=== PATIENT | male | born 1970 | race Caucasian/White ===

== ENCOUNTER → 2018-05-23 | Outpatient (CLI) | payer BC ==
[~2018-05-23] MED LIST: CEPH500 PO; CHOL10002 PO; COMPLERA TABLE1 EACH PO; HYDCOR10 PO; L-LYSINE500 MG PO; LAMZIDT; PRED20 PO; Percocet 5-3251 EACH PO; RITLOP; RXSULTRIDS PO; SOME ANTIBIODIC; SULTRIDS PO; TESTONE CI200 MG/1 M IM; Vitron-C Table1 EACH PO
== END | disposition home or self-care (01) ==
LOC: PLD 12:55 → LAB SHORT 12:55
DX: L08.9 Local infection of the skin and subcutaneous tissue, unspecified (principal)
CPT/HCPCS: 87070; 87077; 87147; 87186; 87205

== ENCOUNTER 2018-11-19 12:49 | Observation (INO) | payer BC, OTHER ==
[~2018-11-19] VITALS: Ht 180.3 cm; Wt 80.7 kg
[2018-11-19 13:23] LABS: BASOPHILS ABSOLUTE AUTO 0.01 K/mm3 (0.00-0.23); BASOPHILS PERCENT AUTO 0 % (0-2); EOSINOPHILS ABSOLUTE AUTO 0.05 K/mm3 (0.00-0.68); EOSINOPHILS PERCENT AUTO 1 % (0-6); Hematocrit 42.6 % (37.0-53.0); Hemoglobin 14.4 g/dL (13.5-17.5); IMMATURE GRAN ABSOLUTE AUTO 0.05 K/mm3 (0.00-0.10); IMMATURE GRAN PERCENT AUTO 1 % (0-1); LYMPHOCYTES ABSOLUTE AUTO 2.62 K/mm3 (0.84-5.20); LYMPHOCYTES PERCENT AUTO 27 % (21-46); MONOCYTES ABSOLUTE AUTO 0.92 K/mm3 (0.16-1.47); MONOCYTES PERCENT AUTO 10 % (4-13); Mean Corpuscular HGB 30.1 pg (26.0-34.0); Mean Corpuscular HGB Conc 33.8 g/dL (31.5-36.5); Mean Corpuscular Volume 89 fL (80-100); NEUTROPHILS ABSOLUTE AUTO 6.02 K/mm3 (1.96-9.15); NEUTROPHILS PERCENT AUTO 62 % (41-73); RDW Coefficient Variation 11.9 % (11.7-14.2); RDW Standard Deviation 38.2 fL (35.1-46.3); Red Blood Cell Count 4.78 M/mm3 (4.30-5.90); White Blood Cell Count 9.67 K/mm3 (4.00-11.30)
[2018-11-19 13:33] LABS: Platelet Count 1 K/mm3 (150-400)
[2018-11-19 14:50] LABS: Alanine Aminotransfer (ALT/SGP 24 U/L (12-78); Albumin, Blood 3.2 g/dL (3.4-5.0); Albumin/Globulin Ratio 0.7 (0.8-1.8); Alk Phos 63 U/L (50-136); Anion Gap 6 mmol/L (6-16); Aspartate Aminotrans (AST/SGOT 19 U/L (12-37); Bilirubin, Total 0.7 mg/dL (0.1-1.0); Blood Urea Nitrogen 14 mg/dL (8-24); Bun/Creatinine Ratio 13.2 (12.0-20.0); CO2, Blood 26 mmol/L (21-32); Calcium, Blood 8.5 mg/dL (8.5-10.1); Chloride, Blood 106 mmol/L (98-108); Creatinine, Blood 1.06 mg/dL (0.60-1.20); Globulin, Blood 4.8 g/dL (2.2-4.0); Glomerular Filtration Rate >60 (60-); Glucose, Blood 96 mg/dL (70-99); Potassium, Blood 4.1 mmol/L (3.5-5.5); Sodium, Blood 138 mmol/L (136-145)
[2018-11-19] MEDS ORDERED: ESTR2 PO (15:21)
[2018-11-19] MEDS ORDERED: Aldactone25 MG PO (15:21)
[2018-11-19] MEDS ORDERED: PREZCOBIX 8001 EACH PO (15:22)
[2018-11-19] MEDS ORDERED: ODEFSEY TABLET1 EACH PO (15:40)
[2018-11-19 17:55] LABS: Source, Urine Clean Catch
[2018-11-19 17:58] LABS: Appearance, Urine Clear (Clear); Bilirubin, Urine Neg (Neg); Blood, Urine Neg (Neg); Color, Urine Yellow (P-Yellow); Glucose Qualitative, Urine Neg (Neg); Ketones, Urine Neg (Neg); Leukocyte Esterase, Urine 1+ (Neg); Nitrite, Urine Neg (Neg); Protein, Urine Neg (Neg); Urobilinogen, Urine NORM (Normal)
[2018-11-19 18:12] LABS: Hematocrit 38.8 % (37.0-53.0); Hemoglobin 13.1 g/dL (13.5-17.5); Mean Corpuscular HGB 30.7 pg (26.0-34.0); Mean Corpuscular HGB Conc 33.8 g/dL (31.5-36.5); Mean Corpuscular Volume 91 fL (80-100); RDW Coefficient Variation 12.1 % (11.7-14.2); Red Blood Cell Count 4.27 M/mm3 (4.30-5.90); White Blood Cell Count 8.37 K/mm3 (4.00-11.30)
[2018-11-19 18:25] LABS: Platelet Count 1 K/mm3 (150-400)
[2018-11-19 18:26] LABS: Amorphous Light (0-Heavy); Red Blood Cells, Urine Not Seen /hpf (0-2)
[2018-11-19 18:27] LABS: Bacteria Mod /hpf; Squamous Epithelial Cells Few /hpf (Few)
--- NOTE | 2018-11-19 20:59 | NUR ---
SPOKE TO DOUGLAS LUQUE REGARDING LAB DRAW BETWEEN PLATELET INFUSIONS, RECEEIVED ORDER TO RECHECK TONIGHT. PATIENT RESTING QUIETLY IN BED SLEEPING. DENIES PAIN AT THIS TIME.IN NO APPARENT DISTRESS. ASSESSMENT COOPLETED. CALL [facility] WITHIN REACH.
[2018-11-19 22:20] LABS: Mean Platelet Volume 11.3 fL (9.1-12.4)
[2018-11-19 22:23] LABS: Platelet Count 2 K/mm3 (150-400)
--- NOTE | 2018-11-19 22:56 | NUR ---
2240: SPOKE TO ONCALL HOSPITALIST TO REPORT CRITICAL VALUE PLT =2 UP FROM 1. NO NEW ORDERS RECEIVED. ALSO REPORTED PHARMACY SAYS WE DONT HAVE ANY OF THE ORDERED FLEBOGAMMA DIF WHICH IS IN A [place] SHORTAGE.
[2018-11-20 05:15] LABS: BASOPHILS PERCENT AUTO 0 % (0-2); EOSINOPHILS PERCENT AUTO 0 % (0-6); Hematocrit 42.4 % (37.0-53.0); Hemoglobin 14.5 g/dL (13.5-17.5); IMMATURE GRAN ABSOLUTE AUTO 0.05 K/mm3 (0.00-0.10); IMMATURE GRAN PERCENT AUTO 1 % (0-1); LYMPHOCYTES ABSOLUTE AUTO 0.78 K/mm3 (0.84-5.20); LYMPHOCYTES PERCENT AUTO 14 % (21-46); MONOCYTES ABSOLUTE AUTO 0.08 K/mm3 (0.16-1.47); MONOCYTES PERCENT AUTO 1 % (4-13); Mean Corpuscular HGB 29.8 pg (26.0-34.0); Mean Corpuscular HGB Conc 34.2 g/dL (31.5-36.5); NEUTROPHILS ABSOLUTE AUTO 4.63 K/mm3 (1.96-9.15); NEUTROPHILS PERCENT AUTO 84 % (41-73); RDW Coefficient Variation 11.9 % (11.7-14.2); Red Blood Cell Count 4.86 M/mm3 (4.30-5.90); White Blood Cell Count 5.54 K/mm3 (4.00-11.30)
[2018-11-20 05:21] LABS: Mean Corpuscular Volume 87 fL (80-100)
[2018-11-20 05:22] LABS: Mean Platelet Volume 14.6 fL (9.1-12.4); Platelet Count 5 K/mm3 (150-400)
[2018-11-20 05:38] LABS: Alanine Aminotransfer (ALT/SGP 28 U/L (12-78); Albumin, Blood 3.2 g/dL (3.4-5.0); Albumin/Globulin Ratio 0.6 (0.8-1.8); Alk Phos 66 U/L (50-136); Anion Gap 4 mmol/L (6-16); Aspartate Aminotrans (AST/SGOT 18 U/L (12-37); Blood Urea Nitrogen 15 mg/dL (8-24); Bun/Creatinine Ratio 18.4 (12.0-20.0); CO2, Blood 25 mmol/L (21-32); Chloride, Blood 107 mmol/L (98-108); Creatinine, Blood 0.82 mg/dL (0.60-1.20); Globulin, Blood 5.1 g/dL (2.2-4.0); Glomerular Filtration Rate >60 (60-); Glucose, Blood 155 mg/dL (70-99); Magnesium, Blood 2.4 mg/dL (1.6-2.4); Potassium, Blood 4.4 mmol/L (3.5-5.5); Sodium, Blood 136 mmol/L (136-145); Total Protein, Blood 8.3 g/dL (6.4-8.2)
[2018-11-20] MEDS ORDERED: FAMO20 PO (11:24)
[2018-11-20] MEDS ORDERED: DEXA4 PO (11:24)
--- NOTE | 2018-11-20 12:30 | NUR ---
PATIENT D/C'D TO HOME AFTER PLATELETS INFUSED. D/C INSTRUCTIONS AND EDUCATION DISCUSSED WITH PATIENT AND COPY PROVIDED. PATIENT DENIES ANY FURTHER QUESTIONS OR CONCERNS.
== END 2018-11-20 12:43 | disposition home or self-care (01) ==
LOC: ER 12:49 → MEDS 12:50 → ENPENDDIS 11-20 10:39 → MEDS 11-20 12:43
PROVIDERS: Nurse Practitioner Acute Care; Physician Assistant; ADMIT Internal Medicine
DX: D69.6 Thrombocytopenia, unspecified (principal); B20 Human immunodeficiency virus [HIV] disease; E03.9 Hypothyroidism, unspecified; G47.30 Sleep apnea, unspecified; Z87.891 Personal history of nicotine dependence; Z88.0 Allergy status to penicillin; Z88.2 Allergy status to sulfonamides; Z88.1 Allergy status to other antibiotic agents; Z79.899 Other long term (current) drug therapy
CPT/HCPCS: 36415; 36430; 80053; 81001; 83735; 85025; 85027; 85049; 85730; 86850; 86900; 86901; 99284-25; A9270; G0378; P9035; P9053